=== PATIENT | male | born 1945 | race Caucasian/White ===

== ENCOUNTER 2018-07-11 16:23 | Inpatient (IN) | payer MEDICARE, OTHER ==
[2018-07-11] VITALS (12 sets, daily range): BP systolic 56–87; BP diastolic 34–54
[~2018-07-11] VITALS: Ht 177.8 cm; Wt 110.4 kg
[~2018-07-11 16:23] MED LIST: LOVA10TA54 PO
[2018-07-11] MEDS ORDERED: SUCCINYLCHOLINE CHLORIDE 20 MG/ML 10ML VIAL IV ONE ×2 (16:40→17:00)
[2018-07-11] MEDS ORDERED: ETOMIDATE (2MG/ML) 20ML VIAL IV ONE ×2 (16:40→17:00)
[2018-07-11] MEDS ORDERED: MIDAZOLAM DRIP 50 mg/50mL 50 ML IV SCH (16:58)
[2018-07-11] MEDS ORDERED: MIDAZOLAM DRIP 50 mg/50mL 50 ML IV ONE (17:00)
[2018-07-11] MEDS ORDERED: FUROSEMIDE 40 MG/4 ML VIAL IV ONE (17:15)
[2018-07-11] MEDS ORDERED: NOREPINEPHRINE 8 MG/250ML KIT 250 ML IV ONE (17:46)
[2018-07-11] MEDS ORDERED: NOREPINEPHRINE 8 MG/250ML KIT 250 ML IV SCH (18:00)
[2018-07-11] MEDS ORDERED: VANCOMYCIN 1GM/250ML 250 ML IV ONE (18:00)
[2018-07-11] MEDS ORDERED: PIPERACILLIN-TAZOB 3.375GM 100 ML IV ONE (18:00)
[2018-07-11 18:10] LABS: Basophils # (auto) 0 uL; Eosinophils # (auto) 0 uL; Eosinophils % (auto) 0.2 % (0.0-7.0); Hematocrit 33.6 % (41.0-53.0); Nucleated Red Blood Cells % 0.1 %
[2018-07-11 18:12] LABS: Basophils % (auto) 0.4 % (0.0-2.0); Hemoglobin 10.7 g/dL (13.5-17.5); Lymphocytes # (auto) 1.1 uL; Lymphocytes % (auto) 11.4 % (10.0-50.0); Mean Corpuscular Hemoglobin 33.3 pg (28.0-32.0); Mean Corpuscular Hgb Conc. 31.9 g/dL (32.0-36.0); Mean Corpuscular Volume 104.4 fL (80.0-100.0); Monocytes # (auto) 0.5 uL; Monocytes % (auto) 5.2 % (0.0-12.0); Neutrophils % (auto) 82.8 % (37.0-80.0); Platelet Count (auto) 425 10^3/uL (140-450); Red Blood Cells 3.22 10^6/uL (4.5-5.90); White Blood Cell 9.7 10^3/uL (4.4-10.8)
[2018-07-11 18:24] LABS: INR 1.21 (0.9-1.15); Partial Thromboplastin Time 32.4 sec (23.78-33.04); Prothrombin Time 12.8 sec (9.27-12.13)
[2018-07-11 18:27] LABS: Albumin 1.4 g/dL (3.4-5.0); Calcium 7.8 mg/dL (8.5-10.1); Potassium 3.9 mmol/L (3.5-5.1)
[2018-07-11] MEDS ORDERED: MORPHINE SULF INJ 2 MG/ML SYRINGE 1ML IV PRN (18:30)
[2018-07-11] MEDS ORDERED: FUROSEMIDE INJECTION 100 MG in D5W 5% 90 ML IV SCH (18:30)
[2018-07-11] MEDS ORDERED: SODIUM BICARBONATE 8.4 % INJ 50ML VIAL IV ONE (18:30)
[2018-07-11] MEDS ORDERED: NITROGLYCERIN 0.4 MG SL TAB SL PRN (18:30)
[2018-07-11 18:33] LABS: BUN/Creatinine Ratio 13.1; Bilirubin, Total 1.1 mg/dL (0.2-1.0); Total Protein 5.8 g/dL (6.4-8.2)
[2018-07-11 18:38] LABS: Lactic Acid w/Reflex 8.3 mmol/L (0.4-2.0)
[2018-07-11] MEDS ORDERED: ENOXAPARIN SOD 40 MG/0.4 ML SYRINGE SC SCH (19:04)
[2018-07-11] MEDS: DOBUTamine 1000MCG/ML 250 ML IV SCH (19:11)
[2018-07-11 20:08] LABS: Urine Bacteria FEW /hpf (None Seen); Urine Blood Negative /uL (Negative); Urine Hyaline Cast FEW /lpf (0 - 2); Urine Mucus FEW (None Seen); Urine WBC 10 /hpf (0 - 3)
[2018-07-11] MEDS ORDERED: SODIUM CHLORIDE 0.9% 1,000 ML IV SCH (20:45)
[2018-07-11] MEDS ORDERED: DOXYCYCLINE 100MG/250ML 250 ML IV SCH (21:00)
[2018-07-11] MEDS: PHENYLEPHRINE INJ 20 MG in SODIUM CHL 0.9% 250 ML IV SCH (22:00)
[2018-07-11] MEDS ORDERED: PHENYLEPHRINE IV 250 ML IV ONE (22:03)
[2018-07-11] MEDS ORDERED: VASOPRESSIN 50 UNITS in D5W 5% 247.5 ML IV SCH (22:45)
[2018-07-11] MEDS ORDERED: VASOPRESSIN 20 UNIT/ML ONE (22:51)
[2018-07-11] MEDS ORDERED: EPINEPHrine HCL 250 ML IV SCH (23:54)
[2018-07-12] VITALS (76 sets, daily range): BP systolic 44–127; BP diastolic 2–76
[2018-07-12] MEDS ORDERED: ALBUMIN 25% 50 ML IV ONE
[2018-07-12] MEDS ORDERED: EPINEPHrine HCL 250 ML IV ONE (00:08)
[2018-07-12] MEDS ORDERED: EPINEPHrine HCL 1 MG/10 ML SYRG ONE (00:08)
[2018-07-12] MEDS ORDERED: PHENYLEPHRINE IV 250 ML IV ONE ×4 (00:25→05:53)
[2018-07-12] MEDS: DOBUTamine 1000MCG/ML 250 ML IV SCH ×2 (00:41→06:46)
--- NOTE | 2018-07-12 01:20 | NUR ---
S/W PT. BROTHER-SHAHRZAD, WHO MAKES THE DECISIONS FOR PT. HEALTHCARE; SHAHRZAD STATES THAT HE DOES NOT WANT PT. TO REMAIN A FULL CODE HE KNOWS PT. HAS MULTIPLE CO-MORBIDITIES AND WAS ON HOSPICE AT HOME. WE WILL CONTINUE WITH CURRENT TREATMENT AND IF PT. HEART STOPS THERE WILL BE NO TREATMENT/CPR/ACLS MEDS/SHOCK.
[2018-07-12 01:42] LABS: Chloride 119 mmol/L (98-107); Sodium 149 mmol/L (136-145)
[2018-07-12 01:44] LABS: Anion Gap 16 (5-15); Blood Urea Nitrogen 22 mg/dL (7-18); Calcium 6.7 mg/dL (8.5-10.1); Carbon Dioxide 14 mmol/L (21-32); Glucose 178 mg/dL (74-106); Magnesium 1.7 mg/dL (1.6-2.6)
[2018-07-12 01:48] LABS: BUN/Creatinine Ratio 14.9; GFR African American 60 mL/min; GFR Non-African American 49 mL/min
[2018-07-12 02:25] LABS: Potassium 6.5 mmol/L (3.5-5.1)
[2018-07-12 03:17] LABS: Basophils % (auto) 0.3 % (0.0-2.0); Mean Corpuscular Volume 105.3 fL (80.0-100.0); Nucleated Red Blood Cells % 0.1 %; Platelet Count (auto) 305 10^3/uL (140-450); Red Cell Distribution Width 17.4 % (11.8-14.3)
[2018-07-12 03:19] LABS: Basophils # (auto) 0.1 uL; Eosinophils # (auto) 0 uL; Eosinophils % (auto) 0.1 % (0.0-7.0); Hematocrit 29.9 % (41.0-53.0); Hemoglobin 9.4 g/dL (13.5-17.5); Lymphocytes # (auto) 2.5 uL; Lymphocytes % (auto) 13.3 % (10.0-50.0); Mean Corpuscular Hemoglobin 33.2 pg (28.0-32.0); Mean Corpuscular Hgb Conc. 31.6 g/dL (32.0-36.0); Monocytes # (auto) 0.6 uL; Monocytes % (auto) 3.2 % (0.0-12.0); Neutrophils # (auto) 15.7 uL; Neutrophils % (auto) 83.1 % (37.0-80.0); Red Blood Cells 2.84 10^6/uL (4.5-5.90); White Blood Cell 18.9 10^3/uL (4.4-10.8)
[2018-07-12 03:34] LABS: BUN/Creatinine Ratio 13.2; Calcium 7.2 mg/dL (8.5-10.1); Magnesium 1.7 mg/dL (1.6-2.6); Potassium 3.4 mmol/L (3.5-5.1)
[2018-07-12] MEDS: PHENYLEPHRINE INJ 20 MG in SODIUM CHL 0.9% 250 ML IV SCH (04:48)
[2018-07-12] MEDS ORDERED: MAGNESIUM SULFATE 1GM/100ML 100 ML IV ONE ×2 (06:30→06:43)
[2018-07-12] MEDS ORDERED: POTASSIUM CHL 20MEQ/100ML 100 ML IV ONE ×2 (06:30→06:43)
--- NOTE | 2018-07-12 07:30 | NUR ---
REPORT REPORT RECEIVED FROM SHAKILA RNCAITLIN. BEDSIDE CHECK DONE. PT ON THE VENTILATOR ON LEVOPHED, NEOSYNEPHRINE, VASOPRESSIN AT MAXIMUM DOSE, DOBUTAMINE AT 5 MCG/KG/MIN (NON TITRATABLE) AND EPINEPHRINE AT 2 MCG/MIN. SEDATED ON VERSED AT 5 MG/HR. ON 100% FIO2 ON THE VENTILATOR. CONTINUE FULL CARE BUT DNR STATUS.
[2018-07-12] MEDS: PIPERACILLIN-TAZOB 3.375GM 100 ML IV SCH ×3 (07:40→13:10)
--- NOTE | 2018-07-12 07:52 | NUR ---
ASSESSMENT PT SEDATED ON VERSED WITH NO RESPONSE TO PAIN. SEDATED ON VERSED AT 5 MCG TO KEEP RR WNL. NO SPONTANEOUS MOVEMENTS NOTED. INTUBATED WITH 8 FR ETT/24 AT THE LIP, TV 550, AC 14, 100% AND PEEP OF 5. LUNGS WITH EXPIRATORY CRACKLES AND DIMINISHED O2 SAT OF 97%. TELE ST [address] IN LEAD II. WEAK PALPABLE PULSES TO RADIAL AND DOPPLER TO LOWER EXTREMITIES. +4 PITTING EDEMA TO LOWER EXTREMITIES. +2 PITTING EDEMA TO BUE. WEEPING A LARGE AMOUNT OF STRAW COLORED FLUID FROM PT'S LEFT ARM, WRAPPED IN A TOWEL AND CAIR PAD. SLIGHT MOTTLING NOTED TO BOTH KNEES AND HEELS. UNABLE TO APPLY SCDS TO BLE DUE TO SEVERE EDEMA. ABD SOFT WITH NO BOWEL SOUNDS NOTED. OGT IN PLACE AND TO LIS WITH DARK GREENISH BROWN FLUID RETURNED. NO BM, UNSURE OF LAST BM. PATEL CATHETER DRAINING SMALL AMOUNT OF CLEAR SINTIA URINE WITH A STRONG ODOR. PT WITH RIJ TLC, PLACED 4/20, SITE BENIGN, WITH VERSED, LEVOPHED, NEOSYNEPHRINE, DOBUTAMINE, K RIDER. NS, EPINEPHRINE AND VASOPRESSIN INFUSING. SET UP FOR CVP READING BUT UNABLE TO OBTAIN RESULT. TOO UNSTABLE FOR TURNING AT THIS TIME. PT WITH SKIN SPLIT TO R WRIST, OPEN TO AIR, SKIN TEAR TO LEFT LOWER FOREARM, OPEN TO AIR. LEFT MIDDLE FOREARM WITH SKIN TEARS X2, WITH PINK WOUND BED AND COVERED WITH OPTIFOAM DRESSING. CONTINUE TO MONITOR.
--- NOTE | 2018-07-12 07:52 | NUR ---
PT TEACHING PT UNABLE TO BENEFIT FROM PT TEACHING AT THIS TIME DUE TO CONDITION AND BEING SEDATED WHILE ON THE VENTILATOR. Addendum: 07/12/18 at 1658 by Alyssa Dixon RN Amended: Links added.
--- NOTE | 2018-07-12 07:52 | NUR ---
SKIN SLIGHT MOTTLING NOTED TO KNEES AND HEELS. CALLOUSES NOTED TO THE DORSAL SURFACE OF TOES ON BOTH FEET. SKIN SPLIT TO RIGHT WRIST, OPEN TO AIR. SKIN TEARS X3 TO LEFT FOREARM, WITH THE UPPER TWO COVERED BY AN OPTIFOAM DRESSING, THE LOWER OPEN TO AIR. PROFUSE WEEPING OF STRAW COLORED FLUID FROM THE LEFT ARM. UNABLE TO ASSESS SKIN TO PLANTAR SURFACE OF BODY PT TOO UNSTABLE TO TOLERATE TURNING.
[2018-07-12] MEDS ORDERED: SODIUM CHLORIDE 0.9% 1,000 ML IV SCH (08:15)
--- NOTE | 2018-07-12 08:30 | NUR ---
KAVITA PAGE REIMBURSEMENT AUDITOR, HERE TO CHECK ON PT. UPDATED HIM ON THE PT'S CURRENT CONDITION. ORDER RECEIVED TO DC THE LASIX DRIP AND TRY TO DOUBLE OR QUADRUPLE STRENGTH ANY OF THE DRIPS WE CAN. WILL SPEAK WITH THE PHARMACIST.
--- NOTE | 2018-07-12 09:00 | NUR ---
FAMILY RECEIVED A PHONE ASHLEY FROM THE PT'S NIECE, YENIFER LEACH. I UPDATED HER ON THE PT'S CURRENT CONDITION AND SHE IS ALREADY AWARE OF THE POOR PROGNOSIS.
--- NOTE | 2018-07-12 09:00 | NUR ---
UNABLE TO ADMINISTER ORDERED DOSE OF VIBRAMYCIN UNTIL ZOSYN FINISHES INFUSING DUE TO LACK OF IV ACCESS.
--- NOTE | 2018-07-12 10:06 | NUR ---
REPORT REPORT RECEIVED FROM CAITLIN JHAVERI RN. IN TO THE BEDSDIE TO CHECK ON PT. Addendum: 07/12/18 at 1021 by Alyssa Dixon RN REPORT RECEIVED AT [id number]
[2018-07-12] MEDS ORDERED: EPINEPHrine HCL INJECTION 8 MG in D5W 5% 250 ML IV SCH (10:11)
[2018-07-12] MEDS ORDERED: PHENYLEPHRINE INJ 80 MG in SODIUM CHL 0.9% 250 ML IV SCH (10:11)
[2018-07-12] MEDS ORDERED: DOBUTamine HCL 500 MG in D5W 5% 210 ML IV SCH (10:11)
[2018-07-12] MEDS ORDERED: NOREPINEPHRINE BITARTRATE 32 MG in D5W 5% 218 ML IV SCH (10:11)
--- NOTE | 2018-07-12 10:18 | NUR ---
MD VISIT PT SEEN AND EXAMINED BY DR SMITH. HE STATED IF I SPEAK WITH THE PT'S BROTHER TO CHECK AND SEE IF HE WOULD WANT A TERMINAL WEAN FOR THE PT. WILL ALSO GIVE A ONE TIME DOSE OF LASIX 40 MG IV.
[2018-07-12] MEDS ORDERED: FUROSEMIDE 40 MG/4 ML VIAL IV ONE (10:30)
[2018-07-12] MEDS ORDERED: cefTRIAXone 1GM/50ML D5W 50 ML IV ONE (10:45)
[2018-07-12] MEDS ORDERED: VANCOMYCIN PER PHARMACY 0 MG IV SCH (10:45)
[2018-07-12] MEDS ORDERED: POTASSIUM CHLORIDE 20 MEQ, LIDOCAINE 1% (LOCAL ANESTH.) 2 ML in SODIUM CHL 0.9% 100 ML IV ONE (10:45)
--- NOTE | 2018-07-12 10:53 | NUR ---
LASIX 40 MG IV ORDERED. ADMINISTERING 10 MG AT A TIME PT TOLERATES.
--- NOTE | 2018-07-12 10:53 | NUR ---
VISITOR FRIEND, JAMES, IN TO CHECK ON PATIENT.
--- NOTE | 2018-07-12 11:30 | NUR ---
WOUND CARE LATA, HOSPITAL FOOD SERVICE WORKER, AT THE BEDSIDE. ASSISTED HER TO TURN THE PT SO SHE COULD EXAMINE THE WOUNDS. COMPLETE LINEN CHANGE DONE.
--- NOTE | 2018-07-12 11:30 | NUR ---
WOUND CARE NOTE: IN TO SEE PATIENT PER WOUND CARE CONSULT REQUEST. PATIENT WAS NOTED UPON ADMIT TO HAVE MULTIPLE WOUNDS. WOUNDS PHOTOGRAPHED AT TIME OF ADMIT BY BEDSIDE NURSE AND AT THIS TIME BY WOUND CARE FOR REFERENCE. ORDERED SPECIALTY BARIATRIC AIR BED AT THIS TIME. PATIENT TO BE PLACED, PENDING DELIVERY BY [facility]. SKIN/WOUND CARE PLAN IMPLEMENTED. CURRENT YOKO SCORE IS 9. PATIENT IS INTUBATED, ON MULTIPLE DRIPS/VASOPRESSORS. PATIENT IS NOTED TO HAVE 4 + PITTING EDEMA, MOTTLING OF SKIN TO BILATERAL FEET HEELS. HE HAS MULTIPLE CALLOUSED OVER NEUROPATHIC ULCERS TO DORSAL TOES OF RIGHT AND LEFT FOOT. HE HAS MULTIPLE PARTIAL THICKNESS SKIN TEARS TO BUE, WITH WEEPING OF THE TISSUES AND EDEMA. APPLIED THERAHONEY, OPTIFOAM GENTLE DRESSINGS. CHUX UNDER ARMS TO HELP WITH MOISTURE CONTROL. PATIENT HAS MULTIPLE PURPLE DTI'S NOTED TO LEFT UPPER BACK, MEDIAL SACRUM, LEFT HIP. DTI TO LEFT UPPER BACK IS EVOLVING, OPEN TO PARTIAL THICKNESS AT THIS POINT. THERE IS A SERUM FILLED BLISTER OVER THE LEFT HIP DTI. APPLIED THERAHONEY TO OPEN WOUND ON LEFT BACK, COVERED LEFT BACK, LEFT HIP AND SACRUM WITH OPTIFOAM GENTLE DRESSINGS. CAMERON-RECTUM, BILATERAL BUTTOCKS IS NOTED TO HAVE INCONTINENCE ASSOCIATED DERMATITIS RECOMMENDATIONS: FREQUENT TURN SCHEDULE Q 2 HOURS, PRN CONDITION PERMITS, WITH PRESSURE REDISTRIBUTION USING PILLOWS/WEDGES, BID/PRN APPLICATION OF MOISTURE BARRIER CREAM TO SACRUM, BILATERAL BUTTOCK SKIN, COVERING UPPER MEDIAL SACRUM WITH OPTIFOAM GENTLE SACRAL DRESSING, DAILY/PRN DRESSING CHANGES TO ALL OPEN SKIN TEARS, AND PRESSURE ULCERS, WITH THERAHONEY, OPTIFOAM GENTLE DRESSINGS, SPECIALTY AIR BED (BARIATRIC), ELEVATION OF HEELS USING PILLOWS/WEDGES, DIETARY CONSULT FOR MULTIPLE WOUNDS, CLOSE MONITORING OF EXTREMITIES FOR CYANOSIS D/T MULTIPLE VASOPRESSORS, CONTINUED MONITORING BY WOUND CARE TEAM. Addendum: 07/12/18 at 1411 by Ana Shah RN Amended: Links added.
[2018-07-12] MEDS ORDERED: VANCOMYCIN 1GM/250ML 250 ML IV SCH (12:00)
[2018-07-12] MEDS ORDERED: BUMETANIDE (0.25 MG/ML) INJ 10ML IV ONE (13:45)
[2018-07-12] MEDS ORDERED: ALBUMIN 25% 100 ML IV SCH (14:00)
--- NOTE | 2018-07-12 14:05 | NUR ---
FAMILY SPOKE WITH PT'S BROTHER, SHAHRZAD HERNANDEZ, BY PHONE. HE LIVES IN [place], . HE STATED THAT HIS BROTHER'S WISHES WERE NOT TO BE KEPT ALIVE ON MACHINES. WE DISCUSSED DNR WITH CONTINUING ALL CARE AND STOPPING CARE AND DOING A TERMINAL WEAN WITH COMFORT CARE. HE STATED THAT HIS BROTHER WOULD NOT WANT TO BE KEPT ALIVE IN THE MACHINES. WILL CONTACT DR SMITH AND ASK HIM TO CALL THE BROTHER TO DISCUSS IT. PAGE D AND SPOKE WITH DR SMITH. HE WILL COME TO THE ICU AND THEN CALL THE PT'S BROTHER, SHAHRZAD.
--- NOTE | 2018-07-12 14:35 | NUR ---
MD/FAMILY DR SMITH HERE AND SPOKE WITH THE PT'S BROTHER SHAHRZAD, BY PHONE. SHAHRZAD HAS DECIDED FOR TERMINAL WEAN TO HONOR HIS BROTHER'S WISHES. DR SMITH WROTE THE ORDER FOR TERMINAL WEAN.
[2018-07-12] MEDS ORDERED: LORazepam 2MG/ML-1ML VIAL IV PRN (14:45)
[2018-07-12] MEDS ORDERED: MORPHINE SULF INJ 2 MG/ML SYRINGE 1ML IV PRN (14:45)
[2018-07-12] MEDS ORDERED: ONDANSETRON HCL 4 MG/2 ML VIAL IV PRN (14:45)
--- NOTE | 2018-07-12 15:19 | NUR ---
PT MEDICATED WITH MORPHINE 2 MG IV PRIOR TO TERMINAL WEAN.
--- NOTE | 2018-07-12 15:21 | NUR ---
Respiratory note: TERMINALLY EXTUBATED PT WITH CANDELARIA SALAZAR. RN CONTINUALLY MONITORING.
--- NOTE | 2018-07-12 15:21 | NUR ---
TERMINAL EXTUBATION TERMINALLY EXTUBATED PER BROTHER'S WISHES, HONORING PT'S WISHES. TURNED OFF ALL IV MEDICATIONS EXCEPT CONTINUING NS AT 30 ML/HR. ORDERED FOR PRN MORPHINE , ATIVAN, AND ZOFRAN. WILL CONTINUE TO ASSESS TO SEE IF THOSE MEDICATIONS ARE NEEDED.
--- NOTE | 2018-07-12 15:27 | NUR ---
1527 NO BP MEASURED RR 26 NO MEASURABLE O2 SAT HR 126
--- NOTE | 2018-07-12 15:40 | NUR ---
114-26-75% AND NO BP REGISTERED.
--- NOTE | 2018-07-12 15:57 | NUR ---
126-27-74% 64/32. CONTINUE TO MONITOR.
--- NOTE | 2018-07-12 16:45 | NUR ---
117-19-78% AND 46/26. CONTINUE TO MONITOR.
--- NOTE | 2018-07-12 17:49 | NUR ---
PT ASYSTOLE AND NO SPONTANEOUS RESPIRATIONS OR BP NOTED.
--- NOTE | 2018-07-12 18:17 | NUR ---
FAMILY SPOKE WITH PT'S BROTHER, SHAHRZAD HERNANDEZ, WHO LIVES IN [place]. NOTIFIED HIM OF THE PT'S . AUTHORIZATION FOR RELEASE OF THE BODY TO [employer] RECEIVED. CONTACT # FOR [employer] IS .
--- NOTE | 2018-07-12 18:35 | NUR ---
[facility] CALLED [facility] AND PROVIDED INFORMATION REQUESTED. PT DECLINED FOR DONATION. CASE # [id number]. OKAY TO RELEASE TO MORTUARY.
--- NOTE | 2018-07-12 18:49 | NUR ---
PRIMER POWDER BLENDER WET CALLED THE PRIMER POWDER BLENDER WET'S OFFICE [phone] TO NOTIFY OF PT'S . AWAITING A CALL BACK.
--- NOTE | 2018-07-12 19:13 | NUR ---
REPORT GIVEN TO ONCOMING RNCAITLIN. MADE AWARE OF DECLINED BY [facility], AND AWAITING A CALL BACK FROM THE METHODS SPECIALIST ENGINEER'S OFFICE. PROVIDED HER WITH THE PHONE NUMBER FOR [employer], .
--- NOTE | 2018-07-12 19:50 | NUR ---
FINISHED SPEAKING WITH THE SUPERVISOR SHUTTLE VENEERING AND PROVIDING REQUESTED INFORMATION INCLUDING [employer] LICENSE NUMBER. PT'S BODY MAY BE RELEASED TO THE MORTUARY. CASE # [id number].
--- NOTE | 2018-07-12 20:51 | NUR ---
S/W [facility] AND PT. PICK-UP WILL BE APPROXIMATELY IN 2 HOURS TO TRANSPORT TO [facility].
--- NOTE | 2018-07-12 23:19 | NUR ---
[facility] TRANSP[facility] HERE TO [facility] SUPERINTENDENT REMAINS OF PT. AND TAKE TO [facility].
[2018-07-13] MEDS ORDERED: cefTRIAXone 1GM/50ML D5W 50 ML IV SCH (09:00)
== END 2018-07-12 20:30 | disposition expired | DRG 871 ==
LOC: EDBD 16:23 → ER 16:28 → TELE 18:40 → ICU WEST 20:58
PROVIDERS: ADMIT Nurse Practitioner Acute Care; ATTEND Nurse Practitioner Acute Care
PROC: 5A1935Z Respiratory Ventilation, Less than 24 Consecutive Hours (ICD-10-PCS; principal; 2018-07-11)
PROC: 0BH17EZ Insertion of Endotracheal Airway into Trachea, Via Natural or Artificial Opening (ICD-10-PCS; 2018-07-11)
PROC: 02HV33Z Insertion of Infusion Device into Superior Vena Cava, Percutaneous Approach (ICD-10-PCS; 2018-07-11)
DX: A41.9 Sepsis, unspecified organism (principal); J96.01 Acute respiratory failure with hypoxia; I50.43 Acute on chronic combined systolic (congestive) and diastolic (congestive) heart failure; E43 Unspecified severe protein-calorie malnutrition; N18.6 End stage renal disease; N17.0 Acute kidney failure with tubular necrosis; J69.0 Pneumonitis due to inhalation of food and vomit; I26.99 Other pulmonary embolism without acute cor pulmonale; D68.9 Coagulation defect, unspecified; E87.0 Hyperosmolality and hypernatremia; I13.2 Hypertensive heart and chronic kidney disease with heart failure and with stage 5 chronic kidney disease, or end stage renal disease; R57.9 Shock, unspecified; E87.1 Hypo-osmolality and hyponatremia; Z66 Do not resuscitate; E66.9 Obesity, unspecified; E87.8 Other disorders of electrolyte and fluid balance, not elsewhere classified; D63.8 Anemia in other chronic diseases classified elsewhere; E11.21 Type 2 diabetes mellitus with diabetic nephropathy; E11.22 Type 2 diabetes mellitus with diabetic chronic kidney disease; E87.5 Hyperkalemia; R65.20 Severe sepsis without septic shock; Z82.49 Family history of ischemic heart disease and other diseases of the circulatory system; Z68.34 Body mass index [BMI] 34.0-34.9, adult; Z86.718 Personal history of other venous thrombosis and embolism; Z87.442 Personal history of urinary calculi; Z90.49 Acquired absence of other specified parts of digestive tract
CPT/HCPCS: 31500; 36415; 36600; 51705; 71045; 80048; 80053; 80061; 81001; 82805; 83036; 83605; 83735; 83880; 84443; 84484; 85025; 85379; 85610; 85730; 87040; 87070; 87077; 87081; 87186; 87205; 93005; 93306; 93970; 94002; 94003; 96365; 96368; G0378; J0171; J0330; J2001; J2250; J2543; J3480; J3490; J7060